=== PATIENT | female | born 1935 | race American Indian/Alaskan Native ===

== ENCOUNTER 2017-10-05 18:34 | Emergency (ER) | payer MEDICARE ==
[2017-10-05 18:35] VITALS: BMI 40.8
[2017-10-05 19:33] VITALS: RESP 20
--- NOTE | 2017-10-05 21:07 | C.PDOC ---
History Of Present Illness 82 year old female presents to the ED c/o left arm pain that has been going on for all week. Patient states her pain started at her shoulder and radiates down to her hand. Patient states she has been taking ibuprofen with no relief to her pain. Patient denies any fever, nausea, vomit, diarrhea, weakness, numbness. Chief Complaint (Nursing): Upper Extremity Problem/Injury History Per: Patient History/Exam Limitations: no limitations Onset/Duration Of Symptoms: Days Current Symptoms Are (Timing): Still Present Quality: "Pain" Exacerbating Factor(s): Movement Recent travel outside of the [place]: No Additional History Per: Patient Past Medical History Reviewed: Historical Data, Nursing Documentation, Vital Signs Vital Signs: Last Vital Signs Temp 97.8 F 10/05/17 21:45 Pulse 69 10/05/17 21:45 Resp 20 10/05/17 21:45 BP 144/70 10/05/17 21:45 Pulse Ox 98 10/05/17 21:45 - Medical History PMH: CHF, Dementia, HTN, Hypercholesterolemia, Hypothyroidism, TIA Denies: Chronic Kidney Disease Surgical History: No Surg Hx - [facility] Procedures ANTERIOR RECT RESECT NEC (05/13/02) CLOSED ENDOSCOPIC BIOPSY OF LARGE INTESTINE (02/08/02) COLONOSCOPY (07/24/06) ENDOSC POLYPECTOMY OF LG INTEST (02/08/02) LG-TO-LG BOWEL ANASTOM (05/13/02) OCCUPATIONAL THERAPY (05/23/02) OTHER APPENDECTOMY (05/13/02) PHYSICAL THERAPY NEC (05/23/02) Family History: States: Unknown Family Hx - Social History Hx Alcohol Use: No Hx Substance Use: No - Immunization History Hx Tetanus Toxoid Vaccination: No Hx Influenza Vaccination: No Hx Pneumococcal Vaccination: No Review Of Systems Constitutional: Negative for: Fever, Chills Cardiovascular: Negative for: Chest Pain, Palpitations Respiratory: Negative for: Cough, Shortness of Breath Gastrointestinal: Negative for: Nausea, Vomiting, Abdominal Pain Musculoskeletal: Positive for: Shoulder Pain, Arm Pain Skin: Negative for: Rash Neurological: Negative for: Weakness, Numbness, Headache Physical Exam - Physical Exam Appears: Non-toxic, No Acute Distress Skin: Normal Color, Warm, Dry Head: Atraumatic, Normacephalic Eye(s): bilateral: Normal Inspection Nose: No Discharge, No Deformity Oral Mucosa: Moist Neck: Normal ROM, Supple Chest: Symmetrical Cardiovascular: Rhythm Regular, No Murmur Respiratory: Normal Breath Sounds, No Rales, No Rhonchi, No Wheezing Gastrointestinal/Abdominal: Soft, No Tenderness, No Guarding, No Rebound Extremity: Normal ROM, Tenderness (Left shoulder ), Capillary Refill (< 2 seconds), No Swelling Pulses: Left Radial: Normal, Right Radial: Normal Neurological/Psych: Oriented x3, Normal Speech, Normal Cognition Gait: Steady ED Course And Treatment O2 Sat by Pulse Oximetry: 97 (On RA) Pulse Ox Interpretation: Normal Medical Decision Making Medical Decision Making: Impression : bursitis Plan: * Naproxen prescription Disposition - Disposition Referrals: [facility] [Outside] Disposition: HOME/ ROUTINE Disposition Time: 21:05 Condition: GOOD Prescriptions: Naproxen [Naprosyn] 500 mg PO BID #20 tablet Instructions: Shoulder Bursitis Forms: [facility] (Kazakh) - Clinical Impression Clinical Impression: Bursitis - Scribe Statement The provider has reviewed the documentation as recorded by the Scribe Harshil Matthews All medical record entries made by the Scribe were at my direction and personally dictated by me. I have reviewed the chart and agree that the record accurately reflects my personal performance of the history, physical exam, medical decision making, and the department course for this patient. I have also personally directed, reviewed, and agree with the discharge instructions and disposition.
[2017-10-05 21:46] VITALS: BP 144/70; PULSE 69; TEMP 97.8
[2017-10-06 05:19] VITALS: O2SAT 97
--- NOTE | 2017-10-06 23:12 | CARD ---
APPROVED REPORT EKG Measurement Heart [id number] <Conclusion> Normal sinus rhythm Right bundle branch block Abnormal ECG
== END 2017-10-05 21:53 | disposition home or self-care (01) ==
LOC: C.ER 18:34
DX: M75.52 Bursitis of left shoulder (principal)